=== PATIENT | female | born 1960 | race Caucasian/White ===

== ENCOUNTER 2016-09-10 10:29 | Emergency (ER) | payer OTHER ==
[~2016-09-10] VITALS: Ht 167.6 cm; Wt 109.1 kg
[2016-09-10 10:32] VITALS: BP 160/102; PULSE 74; RESP 20; O2SAT 97
[2016-09-10 11:06] VITALS: BP 145/71; PULSE 67; RESP 21; O2SAT 92
--- NOTE | 2016-09-10 11:06 | ED.REPORT ---
HPI-Chest Pain 40 and Over Date of Service Sep 10, 2016 ED Provider: Philly Elias MD Patient is as 56-year-old female with a history of throat cancer and tracheotomy who presents to the ED complaining of chest pain radiating down her left arm, onset 24 hours. Patient also has severe left shoulder pain that is exacerbated by slight movement and a non-productive cough. She was admitted to [facility] eleven days ago for possible pneumonia. . Her sister took her to primary care this morning and was sent to the ED without seeing a provider. Her left arm was swollen but has since decreased in size. Nursing Notes Stated Complaint: CHEST PAIN Chief Complaint: Chest Pain Nursing Notes Reviewed: Yes Allergies: Coded Allergies: Penicillins (Verified Allergy, Unknown, 09/10/16) acetaminophen (Verified Allergy, Unknown, 09/10/16) aluminum hydroxide (Verified Allergy, Unknown, 09/10/16) calcium carbonate (Verified Allergy, Unknown, 09/10/16) hydrocodone (Verified Allergy, Unknown, 09/10/16) ibuprofen (Verified Allergy, Unknown, 09/10/16) magnesium hydroxide (Verified Allergy, Unknown, 09/10/16) simethicone (Verified Allergy, Unknown, 09/10/16) Scheduled PRN Diazepam (Diazepam) 5 Mg Tablet 5 MG PO TID PRN PRN muscle spasm Tramadol (Tramadol) 50 Mg Tablet 100 MG PO Q6H PRN PRN For Pain General Time Seen by MD: 10:50 Chief Complaint Chest pain Hx Obtained From: Patient Arrived By: Walk-in Sudden in Onset?: Yes Onset Occurred: 1 day ago Symptom Duration: Since onset Radiation: : Arm left Severity: Current: Moderate Recent Healthcare: Recent doctor visit, Recent hospitalization Similar Sx Previous: Yes Past Medical History Past Medical History high blood pressure low thyroid recurrent trachial bronchitis tracheotemy tubes since 2009 throat cancer, post radiation and chemo Reports: Depression Past Surgical History tracheotomy Reports: Appendectomy, Hysterectomy Family History family history of cardiac events Review of Systems Respiratory: Reports: Non-productive cough Cardiovascular: Reports: Chest pain (radiating down left arm) Complete sys rev & neg: except as marked. Physical Exam Initial Vital Signs Vital Signs (First) Date Time Temp Pulse Resp B/P Pulse Ox O2 Delivery O2 Flow Rate FiO2 09/10/16 10:32 36.2 74 20 160/102 97 Room Air Initial VS: Reviewed Head / Eyes: Atraumatic, Normocephalic, PERRL ENT: Mucous membranes moist, Conjunctiva normal, No scleral icterus Neck: Supple, Non-tender, Full range of motion Skin: Warm, Dry, No cyanosis Neurologic: Alert, Oriented, Nonfocal Psychiatric: Mood/affect normal, Behavior normal, Normal thought content General/Constitutional: Awake, Alert, Cooperative Wheezing / Retractions: Positive: Wheezing moderate (scattered wheezes ) Cardiovascular: Heart rate NL, Regular rhythm, Heart sounds NL, No gallop, No murmurs, No rubs Abdomen: Atraumatic, Soft, Non-tender, No guarding, No rebound, BS normoactive Left Shoulder: Positive: Tenderness present... (Moderate) left trapezius in spasm movement of the arm rotator cuff or manipulation of trapezius completely reproduces pain Interpretation & Diagnostics Lab Results Interpretation Result Diagram: 09/10/16 1105 09/10/16 1105 Test 09/10/16 11:05 09/10/16 13:03 White Blood Count 7.8th/mm3 (3.8-10.1) Red Blood Count 4.18mil/mm3 (3.90-5.20) Hemoglobin 13.3g/dL (12.0-15.6) Hematocrit 39.4% (35.0-46.0) Mean Corpuscular Volume 94.3fL (81-100) Mean Corpuscular Hemoglobin 31.8pg (27.0-35.0) Mean Corpuscular Hemoglobin Concent 33.8% (32.0-37.0) Red Cell Distribution Width 13.7% (12.3-15.4) Platelet Count 264bil/L (150-400) Neutrophils (%) (Auto) 69.1% (40-74) Lymphocytes (%) (Auto) 11.5% (14-46) Monocytes (%) (Auto) 12.5% (4-12) Eosinophils (%) (Auto) 6.2% (0-5) Basophils (%) (Auto) 0.4% (0-3) Sodium Level 137mEq/L (134-144) Potassium Level 4.7mEq/L (3.5-5.2) Chloride Level 99mEq/L (97-108) Carbon Dioxide Level 22mmol/L (18-29) Blood Urea Nitrogen 17mg/dL (6-24) Creatinine 0.55mg/dL (0.57-1.00) Estimat Glomerular Filtration Rate 164mL/min (>59) Glucose Level 102mg/dL (60-99) Calcium Level 8.9mg/dL (8.5-10.1) Magnesium Level 2.1mg/dL (1.6-2.6) Total Bilirubin 0.3mg/dL (0.0-1.2) Aspartate Amino Transf (AST/SGOT) 26U/L (0-50) Alanine Aminotransferase (ALT/SGPT) 15U/L (0-32) Alkaline Phosphatase 60U/L (25-150) Troponin T < 0.010ug/L (0.0-0.011) Total Protein 6.9g/dL (6.4-8.4) Albumin 4.1g/dL (3.4-5.0) Hold Brown Top Tube Received (Received) Hold Urine Received (Received) ECG Interpretation Time: 12:35 Interpreted by: ED physician Normal ECG Interpretation: Normal rate, Normal sinus rhythm, No acute ischemic changes, Normal QRS, Normal axis, Normal intervals, No change from prior ECGs, Adequate tracing X-Ray Chest Interpretation Chest Xray Interpretation: IMPRESSION: No acute cardiopulmonary disease process. Dictated by: Yuridia Bailey MD, PhD on 09/10/2016 at 11:17 Approved by: Yuridia Bailey MD, PhD on 09/10/2016 at 11:18 View: Portable Interpretation / Wet Read by: Interpret - Radiologist Re-Eval/Medical Decision Time of Eval: 14:00 Patient Status: Condition improved Re-Evaluation/Progress Note: Pt rechecked. Informed pt of diagnosis of musculoskeletal chest pain and plan for treatment. Pt understands and agrees with plan. F/U and RTER warnings given. All questions addressed. Counseled Regarding: Diagnosis, Lab results, Need for follow-up, When/why to return to ED Discharge & Departure Primary Impression: Musculoskeletal chest pain Ruled Out: STEMI (ST elevation myocardial infarction), ACS (acute coronary syndrome), Pneumonia Disposition: Home Discharge Condition All VS Reviewed: Yes Condition: Stable Additional Instructions: Thank you for coming to the Emergency Room today. Upon analysis of your labs and imaging, you are not experiencing any cardiac event. Your diagnosis is musculoskeletal chest pain. Your muscles around your neck and shoulders are very tight and moving them reproduces your pain. consider an apt with physical therapy to help manage your pain. You may be a perfect candidate for biofeedback to help you purposefully relax your neck and shoulder muscles. Try 5mg Valium up to every 8 hours to help with spasm. 100mg tramadol every 6 hours may be helpful for the pain. If these medications are not effective, discontinue taking the Your sister and chief of pediatric urology, Fatoumata, will help with dosing of both the valium and the tramadol so there is no confusion and no accidental overdosing. I hope you feel better soon! Referrals: Caleb Hutchison MD (PCP) Scribe Attestation Portion of this note were transcribed by Teto Thomas. I, Dr. Elias, personally performed the history, physical exam, and medical decision-making: I reviewed and confirmed the accuracy for the information in the transcribed note. Signed by: johny Reis, 09/10/16 1400 copies to: Caleb Hutchison MD, Shawna L MD Sep 10, 2016 11:06 TETO THOMAS Sep 10, 2016 12:02
[2016-09-10 11:10] LABS: BASOPHILS % (AUTO) 0.4 % (0-3); EOSINOPHILS % (AUTO) 6.2 % (0-5); MONOCYTES % (AUTO) 12.5 % (4-12); Mean Corpuscular Hemoglobin 31.8 pg (27.0-35.0); Mean Corpuscular Volume 94.3 fL (81-100); NEUTROPHILS % (AUTO) 69.1 % (40-74); Platelet Count 264 bil/L (150-400)
--- NOTE | 2016-09-10 11:19 | DRSVH ---
PROCEDURE: X-RAY CHEST ONE VIEW, PORTABLE ([id number]) INDICATIONS: CP/RECENT BRONCHITIS TECHNIQUE: One view of the chest was acquired. COMPARISON: [facility], CHEST 2 VIEW, 08/30/2016, 10:08. FINDINGS: Surgical changes and devices: Surgical clips over the neck base are stable. Lungs and pleura: No pleural effusions or pneumothorax. Lungs are clear. Mediastinum: Mediastinal contours appear normal. Heart size is normal. Bones and chest wall: No suspicious bony lesions. Overlying soft tissues appear unremarkable. IMPRESSION: No acute cardiopulmonary disease process. Dictated by: Yuridia Bailey MD, PhD on 09/10/2016 at 11:17 Approved by: Yuridia Bailey MD, PhD on 09/10/2016 at 11:18
[2016-09-10 11:45] LABS: Magnesium 2.1 mg/dL (1.6-2.6)
[2016-09-10 12:01] LABS: TROPONIN T < 0.010 ug/L (0.0-0.011)
[2016-09-10 12:47] VITALS: BP 100/52; PULSE 65; RESP 19; O2SAT 96
[2016-09-10 13:35] VITALS: BP 122/97; PULSE 60; RESP 14; O2SAT 93
[2016-09-10] MEDS ORDERED: TRAM50TA2 PO (13:40)
[2016-09-10] MEDS ORDERED: DIAZ5TAB3 PO (13:40)
[2016-09-10 14:31] VITALS: BP 113/62; PULSE 72; RESP 16; O2SAT 94
== END 2016-09-10 14:32 | disposition home or self-care (01) ==
LOC: SED 10:29
DX: R07.89 Other chest pain (principal); M25.512 Pain in left shoulder; Z88.0 Allergy status to penicillin; Z88.5 Allergy status to narcotic agent; Z88.8 Allergy status to other drugs, medicaments and biological substances